=== PATIENT | female | born 1980 | race Caucasian/White ===

== ENCOUNTER 2020-05-14 15:19 | Outpatient (CLI) | payer OTHER ==
[~2020-05-14] VITALS: Ht 162.6 cm; Wt 117.7 kg
[~2020-05-14 15:19] MED LIST: HYDR-3240 PO; IBUP-1222 PO
[2020-05-14 15:30] VITALS: BP 123/70
== END 2020-05-14 16:00 | disposition home or self-care (01) ==
LOC: LDOP 15:19
PROVIDERS: ATTEND Obstetrics & Gynecology
DX: O09.90 Supervision of high risk pregnancy, unspecified, unspecified trimester (principal)
CPT/HCPCS: 59025

== ENCOUNTER → 2020-06-05 | Outpatient (CLI) | payer OTHER | END | disposition home or self-care (01) | LOC: STAR 09:53 | PROVIDERS: ATTEND Obstetrics & Gynecology | DX: Z01.818 Encounter for other preprocedural examination (principal); Z11.59 Encounter for screening for other viral diseases | CPT/HCPCS: 36415; 87635 ==

== ENCOUNTER 2020-11-11 12:39 | Outpatient (CLI) | payer OTHER ==
[~2020-11-11 12:39] MED LIST changes: +HYDR-1067 PO; -HYDR-3240 PO; +PREN-3 PO
[2020-11-11] MEDS ORDERED: MULT-449 PO (14:13)
[2020-11-11] MEDS ORDERED: LORA-856 PO (14:13)
[2020-11-11] MEDS ORDERED: CHOL10003 PO (14:13)
== END 2020-11-11 23:59 | disposition home or self-care (01) ==
LOC: STAR 12:39
PROVIDERS: ATTEND Surgery
DX: Z02.9 Encounter for administrative examinations, unspecified (principal)

== ENCOUNTER 2020-11-17 07:47 | Day surgery (SDC) | payer OTHER ==
[~2020-11-17] VITALS: Ht 162.6 cm; Wt 112.0 kg
[~2020-11-17 07:47] MED LIST changes: +CHOL10003 PO; +LORA-856 PO; +MULT-449 PO
[2020-11-17] MEDS ORDERED: MIDAZOLAM 1 MG/ML, 2ML ONE (07:55)
[2020-11-17] MEDS ORDERED: FENTANYL PF 250 MCG/5ML ONE (07:56)
[2020-11-17] MEDS ORDERED: LIDOCAINE-MPF 2% ,5ML ONE (07:59)
[2020-11-17] MEDS ORDERED: ROCURONIUM 10MG/ML,5ML ONE (07:59)
[2020-11-17] MEDS ORDERED: CEFAZOLIN 1,000 MG ONE ×2 (07:59)
[2020-11-17] MEDS ORDERED: DEXAMETHASONE 4 MG/ML, 1ML ONE ×2 (07:59)
[2020-11-17] MEDS ORDERED: ONDANSETRON 2MG/ML, 2ML ONE (07:59)
[2020-11-17] MEDS ORDERED: PROPOFOL 10 MG/ML, 20ML ONE (07:59)
[2020-11-17 08:11] VITALS: BP 108/76
[2020-11-17 08:13] LABS: HCG UR SG 1.024 (1.003-1.030)
[2020-11-17] MEDS ORDERED: LACTATED RINGERS 1,000 ML IV SCH (08:30)
[2020-11-17] MEDS ORDERED: CHLORHEXIDINE 15 ML UDC MM ONE (08:30)
[2020-11-17] MEDS ORDERED: BUPIVACAINE/PF 0.5% ONE (10:12)
[2020-11-17] MEDS ORDERED: EPINEPHRINE 1 MG/ML, 1ML ONE (10:13)
[2020-11-17] MEDS ORDERED: SUGAMMADEX 200 MG/2 ML IVPush ONE (10:31)
[2020-11-17] MEDS ORDERED: DIAZEPAM 5 MG/ML, 2ML IVPush PRN (11:00)
[2020-11-17] MEDS ORDERED: HYDROmorphone 1 MG/ML, 1ML INJ IVPush PRN (11:00)
[2020-11-17] MEDS ORDERED: ACETAMINOPHEN 325 MG TABLET PO PRN (11:00)
[2020-11-17] MEDS ORDERED: MEPERIDINE/PF 25MG/0.5ML IVPush PRN (11:00)
[2020-11-17] MEDS ORDERED: ONDANSETRON 2MG/ML, 2ML IVPush PRN ×2 (11:00→12:00)
[2020-11-17] MEDS ORDERED: PROMETHAZINE 25 MG/ML, 1ML IVPush PRN (11:00)
[2020-11-17] MEDS ORDERED: DIPHENHYDRAMINE 50 MG/ML, 1ML IVPush PRN ×2 (11:00→12:00)
[2020-11-17] MEDS ORDERED: OXYcodone 5 MG/5 ML ORAL.SOL UDC PO PRN (11:00)
[2020-11-17] MEDS ORDERED: FENTANYL PF 100 MCG/2ML ONE (11:56)
[2020-11-17] MEDS ORDERED: HYDROmorphone 1 MG/ML, 1ML INJ ONE (11:57)
[2020-11-17] MEDS ORDERED: LIDO30CR TP (11:57)
[2020-11-17] MEDS ORDERED: OXYcodone 5 MG/5 ML ORAL.SOL UDC ONE (11:57)
[2020-11-17] MEDS ORDERED: ONDA4TAB7 PO (11:57)
[2020-11-17] MEDS ORDERED: HYDR-1067 PO (11:57)
[2020-11-17] MEDS: FENTANYL PF 100 MCG/2ML IV PRN ×2 (11:59→12:11)
[2020-11-17] MEDS ORDERED: HYDROcodone/APAP 5/325 TABLET PO PRN (12:00)
[2020-11-17] MEDS ORDERED: morphine SULFATE 10 MG/ML, 1ML IVPush PRN (12:00)
[2020-11-17] MEDS ORDERED: KETOROLAC 30 MG/1 ML IVPush PRN (12:00)
[2020-11-17] MEDS ORDERED: KETOROLAC 30 MG/1 ML ONE (12:11)
== END 2020-11-17 14:20 | disposition home or self-care (01) ==
LOC: OUT 07:47
PROVIDERS: ATTEND Surgery
DX: K42.0 Umbilical hernia with obstruction, without gangrene (principal); K64.4 Residual hemorrhoidal skin tags; L98.8 Other specified disorders of the skin and subcutaneous tissue; D48.5 Neoplasm of uncertain behavior of skin; E66.01 Morbid (severe) obesity due to excess calories; Z68.41 Body mass index [BMI] 40.0-44.9, adult; Z79.899 Other long term (current) drug therapy; Z87.891 Personal history of nicotine dependence
CPT/HCPCS: 11402; 46230; 49653; 81025; 88304; 88307; C1781; J0171; J0690; J1100; J1170; J1885; J2250; J2405; J2704; J3010; J7120; S2900